=== PATIENT | male | born 1960 | race Caucasian/White ===

== ENCOUNTER 2020-04-10 21:40 | Emergency (ER) | payer BC, OTHER ==
[~2020-04-10] VITALS: Ht 165.1 cm; Wt 101.4 kg
[2020-04-10] MEDS ORDERED: LIDOCAINE-MPF 1%, 5ML ONE ×2 (21:52→22:32)
--- NOTE | 2020-04-10 21:58 | NUR ---
Supplies to bedside for local anesthetic and irrigation.
[2020-04-10] MEDS ORDERED: LIDOCAINE-MPF 1%, 5ML INFIL ONE (22:00)
[2020-04-10 22:27] VITALS: BP 170/105
--- NOTE | 2020-04-10 22:50 | NUR ---
Pt seperated his two large dogs freom fighting. When seperating both dogs, they both bit his arms causing 5 puncture wounds and 2 abrasions to left forearm. Significant bleeding noted. Pt deniest any loss of sensation and quite uncomfortable. Pt cms intact to left arm.
[2020-04-10] MEDS ORDERED: NEOSPORIN OINT. PKT 1 PACKET ONE (23:11)
[2020-04-10] MEDS ORDERED: HYDROcodone/APAP 5/325 TABLET ONE (23:17)
[2020-04-10] MEDS ORDERED: HYDROcodone/APAP 5/325 TABLET PO ONE (23:30)
--- NOTE | 2020-04-10 23:42 | NUR ---
Wound dressed with adaptic and krillex gauze as wound was still bleeding. LEONARDO Flowers informed of puncture wound near two other packed wounds that the puncutre was still bleeding and appeared to need a stitch per this RN. Per Kristie PATTERSON she does not want to close at this time. Pt given extra krillex to change bandage tonight. Per md Vallejo pt to remove packing himself in 4 days and come back in 7-10 days for suture removal. Patient/Caregiver given discharge instructions and they have confirmed that they understand the instructions. Patient ambulatory with steady gait.
== END 2020-04-10 23:48 ==
LOC: ED 22:05
DX: S51.852A Open bite of left forearm, initial encounter (principal); R00.0 Tachycardia, unspecified; W54.0XXA Bitten by dog, initial encounter; Y93.89 Activity, other specified; Y92.009 Unspecified place in unspecified non-institutional (private) residence as the place of occurrence of the external cause; Y99.8 Other external cause status
CPT/HCPCS: 12034; 99283; 99285

== ENCOUNTER 2020-04-14 07:54 | Emergency (ER) | payer BC ==
[~2020-04-14] VITALS: Ht 165.1 cm; Wt 103.0 kg
[2020-04-14 08:12] VITALS: BP 158/95
[2020-04-14] MEDS ORDERED: NEOSPORIN OINT. PKT 1 PACKET ONE (08:41)
== END 2020-04-14 09:14 | disposition home or self-care (01) ==
LOC: ED 08:37
DX: S51.812D Laceration without foreign body of left forearm, subsequent encounter (principal); S51.811D Laceration without foreign body of right forearm, subsequent encounter; X58.XXXD Exposure to other specified factors, subsequent encounter
CPT/HCPCS: 99282

== ENCOUNTER 2020-04-19 07:52 | Emergency (ER) | payer BC ==
[~2020-04-19] VITALS: Ht 165.1 cm; Wt 103.1 kg
[2020-04-19 08:03] VITALS: BP 155/94
--- NOTE | 2020-04-19 08:10 | NUR ---
THIS IS A 59 YEAR OLD MALE WHO CAME IN FOR STICHES REMOVAL
[2020-04-19] MEDS ORDERED: NEOSPORIN OINT. PKT 1 PACKET ONE (08:35)
--- NOTE | 2020-04-19 09:05 | NUR ---
Patient/Caregiver given discharge instructions and they have confirmed that they understand the instructions. Patient ambulatory with steady gait.
== END 2020-04-19 09:06 | disposition home or self-care (01) ==
LOC: ED 08:14
DX: S51.812D Laceration without foreign body of left forearm, subsequent encounter (principal); Z48.02 Encounter for removal of sutures; W54.0XXD Bitten by dog, subsequent encounter
CPT/HCPCS: 99282